=== PATIENT | male | born 1950 | race African-American/Black ===

== ENCOUNTER 2022-10-12 09:27 | Outpatient (CLI) | payer OTHER | END 2022-10-12 10:30 | disposition home or self-care (01) | LOC: WOUND MED 09:27 | PROVIDERS: ATTEND Specialist | DX: E11.621 Type 2 diabetes mellitus with foot ulcer (principal); L97.522 Non-pressure chronic ulcer of other part of left foot with fat layer exposed; Z79.4 Long term (current) use of insulin | CPT/HCPCS: 11042; A4927; A6199; A6219; A6223; A6248; G0463 ==

== ENCOUNTER 2022-10-15 09:08 | Outpatient (CLI) | payer OTHER | END 2022-10-15 10:00 | disposition home or self-care (01) | LOC: WOUND MED 09:08 | PROVIDERS: ATTEND Specialist | DX: L97.522 Non-pressure chronic ulcer of other part of left foot with fat layer exposed (principal) | CPT/HCPCS: 97602; A4927; A6199; A6220; A6223; G0463 ==

== ENCOUNTER 2022-10-22 09:32 | Outpatient (CLI) | payer OTHER | END 2022-10-22 10:00 | disposition home or self-care (01) | LOC: WOUND MED 09:32 | PROVIDERS: ATTEND Specialist | DX: E11.621 Type 2 diabetes mellitus with foot ulcer (principal); L97.522 Non-pressure chronic ulcer of other part of left foot with fat layer exposed; Z79.4 Long term (current) use of insulin | CPT/HCPCS: 11042; A4927; A6219; A6223; G0463 ==

== ENCOUNTER 2022-10-26 08:57 | Outpatient (CLI) | payer OTHER | END 2022-10-26 13:47 | disposition home or self-care (01) | LOC: WOUND MED 08:57 | PROVIDERS: ATTEND Specialist | DX: L97.522 Non-pressure chronic ulcer of other part of left foot with fat layer exposed (principal) | CPT/HCPCS: 97602; A4927; A6219; A6223; G0463 ==

== ENCOUNTER 2022-11-12 08:47 | Outpatient (CLI) | payer OTHER | END 2022-11-12 10:00 | disposition home or self-care (01) | LOC: WOUND MED 08:47 | PROVIDERS: ATTEND Specialist | DX: E11.621 Type 2 diabetes mellitus with foot ulcer (principal); L97.522 Non-pressure chronic ulcer of other part of left foot with fat layer exposed; Z79.4 Long term (current) use of insulin | CPT/HCPCS: 11042; A4927; A6199; A6219; A6223; G0463 ==

== ENCOUNTER 2022-11-16 09:13 | Outpatient (CLI) | payer OTHER | END 2022-11-16 10:00 | disposition home or self-care (01) | LOC: WOUND MED 09:13 | PROVIDERS: ATTEND Specialist | DX: L97.522 Non-pressure chronic ulcer of other part of left foot with fat layer exposed (principal) | CPT/HCPCS: 97602; A4927; A6199; A6219; A6223; G0463 ==

== ENCOUNTER → 2022-11-19 09:10 | Outpatient (CLI) | payer OTHER | END | disposition home or self-care (01) | LOC: WOUND MED 08:15 | PROVIDERS: ATTEND Specialist | DX: E11.621 Type 2 diabetes mellitus with foot ulcer (principal); L97.522 Non-pressure chronic ulcer of other part of left foot with fat layer exposed; Z79.4 Long term (current) use of insulin | CPT/HCPCS: 11042; A4927; A6219; A6223; A6251; G0463 ==

== ENCOUNTER 2022-11-26 09:08 | Outpatient (CLI) | payer OTHER | END 2022-11-26 10:00 | disposition home or self-care (01) | LOC: WOUND MED 09:08 | PROVIDERS: ATTEND Specialist | DX: E10.621 Type 1 diabetes mellitus with foot ulcer (principal); L97.522 Non-pressure chronic ulcer of other part of left foot with fat layer exposed; Z79.4 Long term (current) use of insulin | CPT/HCPCS: 11042; A4927; A6219; A6223; G0463 ==

== ENCOUNTER 2022-12-03 09:51 | Outpatient (CLI) | payer OTHER | END 2022-12-03 10:00 | disposition home or self-care (01) | LOC: WOUND MED 09:51 | PROVIDERS: ATTEND Specialist | DX: E11.621 Type 2 diabetes mellitus with foot ulcer (principal); L97.512 Non-pressure chronic ulcer of other part of right foot with fat layer exposed; Z79.4 Long term (current) use of insulin | CPT/HCPCS: 11042; A4927; A6219; A6223; A6251; G0463 ==

== ENCOUNTER 2022-12-07 08:50 | Outpatient (CLI) | payer OTHER | END 2022-12-07 10:00 | disposition home or self-care (01) | LOC: WOUND MED 08:50 | PROVIDERS: ATTEND Specialist | DX: E11.621 Type 2 diabetes mellitus with foot ulcer (principal); L97.512 Non-pressure chronic ulcer of other part of right foot with fat layer exposed; Z79.4 Long term (current) use of insulin | CPT/HCPCS: 97602; A4927; A6219; A6223; A6251; G0463 ==

== ENCOUNTER 2022-12-10 09:15 | Outpatient (CLI) | payer OTHER | END 2022-12-10 10:00 | disposition home or self-care (01) | LOC: WOUND MED 09:15 | PROVIDERS: ATTEND Specialist | DX: E10.621 Type 1 diabetes mellitus with foot ulcer (principal); L97.522 Non-pressure chronic ulcer of other part of left foot with fat layer exposed; Z79.4 Long term (current) use of insulin | CPT/HCPCS: 11042; A4927; A6219; A6223; A6251; G0463 ==

== ENCOUNTER 2022-12-17 08:49 | Outpatient (CLI) | payer OTHER | END 2022-12-17 10:00 | disposition home or self-care (01) | LOC: WOUND MED 08:49 | PROVIDERS: ATTEND Specialist | DX: E10.621 Type 1 diabetes mellitus with foot ulcer (principal); L97.529 Non-pressure chronic ulcer of other part of left foot with unspecified severity; Z79.4 Long term (current) use of insulin | CPT/HCPCS: 97602; A4927; A6223; G0463 ==